=== PATIENT | female | born 1950 | race Caucasian/White ===

== ENCOUNTER 2020-11-03 05:35 | Outpatient (CLI) | payer OTHER ==
[~2020-11-03] VITALS: Ht 157.5 cm; Wt 85.7 kg
[2020-11-03] MEDS ORDERED: SERT25TA PO (13:55)
[2020-11-03] MEDS ORDERED: LISI20TA26 PO (13:55)
[2020-11-03] MEDS ORDERED: HYDR12.56 PO (13:55)
== END 2020-11-03 15:57 | disposition home or self-care (01) ==
LOC: PREOP 05:35
PROVIDERS: ATTEND Surgery
DX: Z01.818 Encounter for other preprocedural examination (principal)

== ENCOUNTER 2020-11-10 08:00 | Day surgery (SDC) | payer MEDICARE, OTHER ==
[~2020-11-10] VITALS: Ht 160 cm; Wt 85.7 kg
[~2020-11-10 08:00] MED LIST: HYDR12.56 PO; LISI20TA26 PO; SERT25TA PO
[2020-11-10] MEDS ORDERED: LACTATED RINGERS 1,000 ML IV STA (08:01)
[2020-11-10] MEDS ORDERED: LACTATED RINGERS 1,000 ML IV ONE (08:06)
[2020-11-10 08:15] VITALS: BP 133/70
[2020-11-10] MEDS ORDERED: PROPOFOL INJECTION 50 ML IV ONE (08:58)
[2020-11-10 09:25] VITALS: BP 89/53
[2020-11-10 09:30] VITALS: BP 90/54
[2020-11-10 09:34] VITALS: BP 91/58
[2020-11-10 09:35] VITALS: BP 96/58
[2020-11-10 10:00] VITALS: BP 117/63
--- NOTE | 2020-11-10 11:12 | Anesthesia-General Post-Op ---
MAC Patient Condition Mental Status/LOC: Same as Preop Cardiovascular: Satisfactory Nausea/Vomiting: Absent Respiratory: Satisfactory Pain: Controlled Complications: Absent Post Op Complications Complications None Follow Up Care/Instructions Patient Instructions None needed. Anesthesiology Discharge Order Discharge Order Patient is doing well, no complaints, stable vital signs, no apparent adverse anesthesia problems. No complications reported per nursing. LINA THRASHER CRNA Nov 10, 2020 11:12
--- NOTE | 2020-11-10 12:33 | Progress Note-Post Operative ---
Post-Operative Progess Note Surgeon (s)/Hhas (s) Surgeon RADHA VILLAR DO Hhas: none Pre-Operative Diagnosis Hx of Colon polyps Post-Operative Diagnosis Diverticula int hemorrhoids Procedure & Operative Findings Date of Procedure 11/10/20 Procedure Performed/Findings After informed consent was obtained, the patient was brought to the endoscopy suite and placed in the bed in the left lateral decubitus position. She was administered IV sedation by the CONTENT PRODUCTION SPECIALIST, who then monitored her vitals the entire time, heart rate, blood pressure and pulse ox and the scope was inserted, started the colonoscopy. Pushed all the way into about 140 cm to get all the way to cecum, took a picture of the appendiceal orifice, noted the ileocecal valve and then slowly withdrew the scope, insufflating to look circumferentially at the pan looking at the cecum, up the ascending colon to the hepatic flexure, then down the transverse colon, splenic flexure, into the descending colon, down into the sigmoid. Saw some diverticula in Sigmoid and finally into the rectum, retroflexed in the rectal vault, saw some minimal internal hemorrhoids and took a picture of this. The patient tolerated the procedure and she recovered in the endoscopy suite. Anesthesia Type IV sedation by CONTENT PRODUCTION SPECIALIST Estimated Blood Loss Estimated blood loss (mL): none Specimens/Packing Specimens Removed none RADHA VILLAR DO Nov 10, 2020 12:33
--- NOTE | 2020-11-10 12:33 | Endoscopy Discharge Instruct ---
Endo Procedure/Findings Findings 1.: Diverticulosis 2.: Internal Hemorrhoids Discharge Instructions - Activity: You might feel a little sleepy until tomorrow. This is due to the medicine you received to relax you. Until tomorrow, you should: NOT drive a car, operate machinery or power tools. NOT drink any alcoholic beverages. NOT make any important decisions or sign importortant papers. Do not return to work until tomorrow, unless otherwise instructed. Resume previous activities tomorrow. Diet: Start by taking liquids. If you tolerate liquids, advance to solid food. 1.: Colonscopy in 10 years Notify Physician - If you experience excessive bleeding, unusual abdominal pain, fever, or chest pain, contact your doctor immediately. RADHA VILLAR DO Nov 10, 2020 12:33
== END 2020-11-10 10:10 | disposition home or self-care (01) ==
LOC: ENDO 08:00
PROVIDERS: ATTEND Surgery
DX: Z12.11 Encounter for screening for malignant neoplasm of colon (principal); K57.30 Diverticulosis of large intestine without perforation or abscess without bleeding; K64.8 Other hemorrhoids; I10 Essential (primary) hypertension; E66.9 Obesity, unspecified; Z79.899 Other long term (current) drug therapy; Z68.33 Body mass index [BMI] 33.0-33.9, adult; Z80.9 Family history of malignant neoplasm, unspecified; Z90.49 Acquired absence of other specified parts of digestive tract; Z86.010 Personal history of colon polyps